=== PATIENT | female | born 1995 | race Caucasian/White ===

== ENCOUNTER 2016-08-20 08:07 | Observation (INO) | payer BC, MEDICAID ==
[~2016-08-20] VITALS: Ht 167.6 cm; Wt 89.2 kg
[2016-08-20] MEDS ORDERED: PRENATAL 1+1)(P1 TAB PO (08:34)
[2016-08-20 10:06] LABS: BLOOD URINE NEGATIVE /UL (NEGATIVE); COLOR URINE YELLOW (YELLOW); GLUCOSE URINE NEGATIVE (NEGATIVE); KETONE URINE 5 mg/dL (NEGATIVE); LEUKOCYTES URINE 25 /UL (NEGATIVE); NITRITE URINE NEGATIVE (NEGATIVE); PROTEIN URINE 15 mg/dL (NEGATIVE); SPEC GRAVITY URINE 1.015 (1.003-1.035); TURBIDITY URINE CLEAR (CLEAR); UROBILINOGEN URINE 1 mg/dL (NORMAL)
[2016-08-20 10:53] LABS: EPITHELIAL URINE 0-2 #/HPF (NEGATIVE); RBC URINE NEGATIVE #/HPF (NEGATIVE); WBC URINE 0-2 #/HPF (NEGATIVE)
[2016-08-20 10:58] LABS: BACTERIA URINE FEW (NEGATIVE); MUCUS URINE 1+ (NEGATIVE)
[2016-08-20] MEDS ORDERED: TYLENOL325 MG PO (14:35)
[2016-08-20] MEDS ORDERED: ZOFRAN4 MG PO (14:35)
[2016-08-20] MEDS ORDERED: ZANTAC 7575 MG PO (14:36)
== END 2016-08-20 14:45 | disposition disaster alternative care site (69) ==
LOC: GOBS 08:07 → GOBM 08:07 → GOBS 08:08 → GOBM 08:08 → GOBS 14:45 → GOBM 14:45
PROVIDERS: ADMIT Obstetrics & Gynecology
DX: O99.89 Other specified diseases and conditions complicating pregnancy, childbirth and the puerperium (principal); R10.13 Epigastric pain; O21.9 Vomiting of pregnancy, unspecified; E86.0 Dehydration; Z3A.29 29 weeks gestation of pregnancy
CPT/HCPCS: G0378; G0379; G0463; J2001; J7042